=== PATIENT | female | born 1965 | race Caucasian/White ===

== ENCOUNTER → 2017-02-20 | Day surgery (SDC) | payer MEDICARE ==
[~2017-02-20] VITALS: Ht 160 cm; Wt 72.1 kg
[~2017-02-20] MED LIST: ALBUTEROL2.5 MG/3 M INH; DESYREL 50 MG T50 MG PO; FISH OIL 10001000 MG PO; FLOVENT DISKUS50 MCG INH; IBUPROFEN600 MG PO; LIPITOR TAB 2020 MG PO; MIRALAX17 GM PO; NICODERM CQ1 EAC1 TD; NORVASC 5 MG TAB5 MG PO; PROVENTIL HFA 61 INH INH; RAPAFLO8 MG PO; ROPINIROLE HCL1 MG PO; SYMBICORT 160-1 INHA INH; ZANTAC150 MG PO
== END | disposition home or self-care (01) ==
LOC: OR 06:40
PROVIDERS: Internal Medicine Gastroenterology
PROC: 0DB68ZX Excision of Stomach, Via Natural or Artificial Opening Endoscopic, Diagnostic (ICD-10-PCS; principal; 2017-02-20 09:30)
DX: K21.0 Gastro-esophageal reflux disease with esophagitis (principal); K44.9 Diaphragmatic hernia without obstruction or gangrene; K29.71 Gastritis, unspecified, with bleeding; I10 Essential (primary) hypertension; E66.3 Overweight; G47.33 Obstructive sleep apnea (adult) (pediatric); K59.09 Other constipation; F17.200 Nicotine dependence, unspecified, uncomplicated; Z88.1 Allergy status to other antibiotic agents; Z88.8 Allergy status to other drugs, medicaments and biological substances; Z79.1 Long term (current) use of non-steroidal anti-inflammatories (NSAID); Z79.899 Other long term (current) drug therapy; Z90.710 Acquired absence of both cervix and uterus
CPT/HCPCS: J2250; J3010; J7030

== ENCOUNTER → 2017-02-21 | Outpatient (CLI) | payer MEDICARE | LOC: US 08:52 | DX: K21.9 Gastro-esophageal reflux disease without esophagitis (principal); R11.2 Nausea with vomiting, unspecified; K59.09 Other constipation | CPT/HCPCS: 74000; 76705 ==

== ENCOUNTER 2020-12-04 21:56 | Emergency (ER) | payer BC ==
[~2020-12-04 21:56] MED LIST changes: +CRESTOR5 MG PO; +ENULOSE10 GM/15 M PO; +LEXAPRO10 MG PO; -LIPITOR TAB 2020 MG PO; +NAPROSYN500 MG PO; +NORCO 7.5-3251 EACH PO; +PRINIVIL20 MG PO; +RESTASIS 0.05%1 EACH OU; +ROBAXIN500 MG PO; +TYLENOL 500 MG500 MG PO; +VOLTAREN100 GM TP
[2020-12-05 00:46] LABS: HEMOGLOBIN 13.4 gm/dl (12.3-15.3); RED BLOOD COUNT 4.29 M/UL (4.00-5.10); WHITE BLOOD COUNT 13.5 K/UL (4.5-11.0)
[2020-12-05 01:05] LABS: BUN/CREATININE RATIO 27 (0-10)
[2020-12-05] MEDS ORDERED: FLOMAX 0.4 MG0.4 MG PO (02:51)
[2020-12-05] MEDS ORDERED: ZOFRAN4 MG PO (02:51)
[2020-12-05] MEDS ORDERED: HYDROCODON-ACE1 EAC4 PO (03:03)
== END 2020-12-05 03:25 | disposition home or self-care (01) ==
LOC: ER1 21:56
PROVIDERS: Emergency Medicine
DX: N13.2 Hydronephrosis with renal and ureteral calculous obstruction (principal); I10 Essential (primary) hypertension; K21.9 Gastro-esophageal reflux disease without esophagitis; F17.210 Nicotine dependence, cigarettes, uncomplicated; Z90.710 Acquired absence of both cervix and uterus
CPT/HCPCS: 80053; 81001; 83690; 85025; 93005; 96374; 96375; 99284; J1885; J2270; J2405

== ENCOUNTER → 2021-05-26 | Outpatient (CLI) | payer BC ==
[~2021-05-26] MED LIST changes: +FLOMAX 0.4 MG0.4 MG PO; +HYDROCODON-ACE1 EAC4 PO; +ZOFRAN4 MG PO
== END ==
LOC: HEART 5 14:32
DX: J44.9 Chronic obstructive pulmonary disease, unspecified (principal)
CPT/HCPCS: 94010

== ENCOUNTER → 2021-06-03 | Outpatient (CLI) | payer BC | LOC: MAMO 15:10 | DX: Z12.31 Encounter for screening mammogram for malignant neoplasm of breast (principal); N63.11 Unspecified lump in the right breast, upper outer quadrant | CPT/HCPCS: 77063; 77067 ==

== ENCOUNTER 2021-09-19 14:34 | Emergency (ER) | payer BC | END 2021-09-19 17:55 | disposition home or self-care (01) | LOC: ER1 14:34 | DX: S61.210A Laceration without foreign body of right index finger without damage to nail, initial encounter (principal); Z23 Encounter for immunization; Y92.89 Other specified places as the place of occurrence of the external cause; Y99.0 Civilian activity done for income or pay; W26.0XXA Contact with knife, initial encounter | CPT/HCPCS: 12001; 90471; 90715; 99283 ==